=== PATIENT | female | born 1965 | race Caucasian/White ===

== ENCOUNTER 2022-09-01 16:17 | Emergency (ER) | payer MEDICARE, SELFPAY ==
[2022-09-01 16:20] VITALS: BP 158/74; PULSE 90; RESP 20; TEMP 37.2; O2SAT 96; BMI 22.3
[2022-09-01 16:59] LABS: COVID-19 Test Negative (Negative)
== END 2022-09-01 21:15 | disposition left against medical advice (07) ==
LOC: HO.ED 20:59
PROVIDERS: Emergency Provider Emergency Medicine
DX: R07.89 Other chest pain (principal); R51.9 Headache, unspecified; Z20.822 Contact with and (suspected) exposure to COVID-19
CPT/HCPCS: 87635; 99281; 99283